=== PATIENT | female | born 1975 | race Caucasian/White ===

== ENCOUNTER 2020-02-25 02:50 | Emergency (ER) | payer OTHER ==
[~2020-02-25] VITALS: Ht 170.2 cm; Wt 67.6 kg
[2020-02-25] MEDS ORDERED: VISTARIL25 MG PO (04:16)
== END 2020-02-25 04:26 | disposition home or self-care (01) ==
LOC: ER 02:50
DX: R00.2 Palpitations (principal); F06.4 Anxiety disorder due to known physiological condition